=== PATIENT | female | born 1960 | race Caucasian/White ===

== ENCOUNTER 2018-10-27 08:17 | Emergency (ER) | payer BC ==
[~2018-10-27] VITALS: Ht 160 cm; Wt 59.0 kg
[2018-10-27] MEDS ORDERED: ONDANSETRON 4 MG/2 ML VIAL IM ONE (08:30)
[2018-10-27] MEDS ORDERED: HYDROMORPHONE 1 MG/1 ML DISP.SYRIN IM ONE (08:30)
[2018-10-27] MEDS ORDERED: HYDROMORPHONE 2 MG/1 ML DISP.SYRIN ONE (08:33)
[2018-10-27] MEDS ORDERED: ONDANSETRON 4 MG/2 ML VIAL ONE (08:33)
--- NOTE | 2018-10-27 08:50 | NUR ---
Pt requesting ER staff/MD to arrange for her to go to [facility]. Pt provided info re Er transfers and emergency surgeries which she is not needed per her own PMD.
--- NOTE | 2018-10-27 09:21 | NUR ---
Patient is resting comfortably in bed with eyes closed, NAD noted.
--- NOTE | 2018-10-27 10:05 | NUR ---
Patient discharged to home in stable conditon. Written and verbal after care instructions given. Patient verbalizes understanding of instructions. Pt left ER accompained by daughter.
[2018-10-27 10:06] VITALS: BP 131/77
== END 2018-10-27 10:07 | disposition home or self-care (01) ==
LOC: ER 08:17
DX: M54.41 Lumbago with sciatica, right side (principal); Z88.0 Allergy status to penicillin
CPT/HCPCS: 96372 ×2; 99283; J1170; J2405; A4663